=== PATIENT | female | born 1950 | race African-American/Black ===

== ENCOUNTER 2021-07-19 11:02 | Emergency (ER) | payer OTHER ==
[2021-07-19 11:31] VITALS: BP 128/70; PULSE 86; TEMP 98; BMI 37.5
[2021-07-19 13:44] LABS: BASO % 1.1 % (0-2.0); EOS % 3.4 % (0-4.5); HEMATOCRIT 42.1 % (32.4-45.2); HEMOGLOBIN 14.4 GM/dL (10.7-15.3); LYMPH % 28.3 % (8-40); MCHC 34.1 g/dl (32.0-36.0); MEAN CELL VOLUME 93.7 fl (80-96); MEAN PLT VOLUME 9.5 fl (7.5-11.1); MONO % 8.7 % (3.8-10.2); NEUT % 58.5 % (42.8-82.8); PLATELET COUNT 225 10^3/uL (134-434); RBC 4.49 M/mm3 (3.60-5.2); RDW 13.8 % (11.6-15.6); WHITE BLOOD COUNT 3.1 K/mm3 (4.0-10.0)
[2021-07-19 14:07] LABS: CHLORIDE 108 mmol/L (98-107); SODIUM 143 mmol/L (136-145)
[2021-07-19 14:10] LABS: CALCIUM 9.3 mg/dL (8.5-10.1)
[2021-07-19 14:11] LABS: ANION GAP 9 MMOL/L (8-16); BLOOD UREA NITROGEN 14.3 mg/dL (7-18); CO2 26 mmol/L (21-32); GLUCOSE,RANDOM 83 mg/dL (74-106); MAGNESIUM 2.3 mg/dL (1.8-2.4)
[2021-07-19 14:14] LABS: CREATININE 0.8 mg/dL (0.55-1.3); SGPT/ALT 23 U/L (13-61)
[2021-07-19 14:15] LABS: TOT PROT 7.5 g/dl (6.4-8.2)
[2021-07-19 14:16] LABS: ALK PHOS 88 U/L (45-117); BILIRUBIN,TOTAL 0.5 mg/dL (0.2-1)
[2021-07-19 14:19] LABS: SGOT/AST 19 U/L (15-37)
== END 2021-07-19 19:30 | disposition home or self-care (01) ==
LOC: JER 11:02
DX: R00.2 Palpitations (principal); R91.8 Other nonspecific abnormal finding of lung field
CPT/HCPCS: 36415; 71046-TC-FY; 71275-TC; 80053; 82550; 83735; 84443; 84484; 85025; 93005; 93010; 99285-25; Q9967

== ENCOUNTER 2022-06-21 04:01 | Inpatient (IN) | payer OTHER ==
[2022-06-21] MEDS ORDERED: DEXAMETHASONE SOD PHOSPHATE 4 MG/1 ML VIAL ONE (06:53)
[2022-06-21] MEDS ORDERED: ONDANSETRON 4 MG/2 ML VIAL ONE ×2 (06:53→09:57)
[2022-06-21] MEDS ORDERED: LIDOCAINE HCL/PF 2% SDV 5ML VIAL ONE (06:53)
[2022-06-21] MEDS ORDERED: ACETAMINOPHEN INJECTION 100 ML IVPB ONE (06:53)
[2022-06-21] MEDS ORDERED: PROPOFOL 40 ML ONE (06:54)
[2022-06-21] MEDS ORDERED: ROCURONIUM BROMIDE 50 MG/5 ML SYRINGE ONE ×3 (06:54→09:24)
[2022-06-21] MEDS ORDERED: FENTANYL CITRATE/PF 50 MCG/ML VIAL ONE ×2 (06:54→12:18)
[2022-06-21] MEDS ORDERED: MIDAZOLAM HCL 2 MG/2 ML SINGLE DOSE VIAL ONE (06:55)
[2022-06-21] MEDS ORDERED: SUCCINYLCHOLINE CHLORIDE 200 MG/10 ML SYRINGE ONE (06:55)
[2022-06-21] MEDS ORDERED: ceFAZolin SODIUM 1 GM VIAL ONE ×2 (06:57→12:15)
[2022-06-21] MEDS ORDERED: SODIUM CHLORIDE 0.9% P/F 10 ML VIAL IJ ONE ×2 (06:57→12:15)
[2022-06-21] MEDS ORDERED: PHENYLEPHRINE HCL 10 MG/1 ML SINGLE DOSE VIAL ONE (07:12)
[2022-06-21] MEDS ORDERED: SEVOFLURANE 250 ML BTL ONE (07:15)
[2022-06-21] MEDS ORDERED: SCOPOLAMINE HYDROBROMIDE 1 PATCH PATCH.TD72 ONE (07:26)
[2022-06-21] MEDS ORDERED: ceFAZolin SODIUM 1 GM VIAL IVPB ONE (08:15)
[2022-06-21] MEDS ORDERED: BUPIVACAINE HCL/PF 0.25% (2.5MG/ML) 10 ML VIAL ONE (08:47)
[2022-06-21] MEDS ORDERED: HYDROmorphone HCl 2 MG/ML VIAL ONE (08:47)
[2022-06-21] MEDS ORDERED: BUPIVACAINE HCL/PF 0.25% (2.5MG/ML) 10 ML VIAL IJ ONE (09:01)
[2022-06-21] MEDS ORDERED: KETOROLAC TROMETHAMINE 30 MG/1 ML VIAL ONE (09:57)
[2022-06-21] MEDS ORDERED: SUGAMMADEX SODIUM 200 MG/2 ML VIAL ONE (09:57)
[2022-06-21] MEDS ORDERED: INDOCYANINE GREEN 25 MG/10 ML VIAL IVPUSH ONE (11:17)
[2022-06-21] MEDS ORDERED: PROMETHAZINE HCL 25 MG/1 ML VIAL IVPUSH PRN (14:04)
[2022-06-21] MEDS ORDERED: ONDANSETRON 4 MG/2 ML VIAL IVPUSH PRN (14:04)
[2022-06-21] MEDS ORDERED: LACTATED RINGERS SOLUTION 1,000 ML IV SCH (14:15)
[2022-06-21] MEDS ORDERED: HYDROmorphone *PCA* 10MG/50ML DISP.SYRIN PCA SCH (14:15)
[2022-06-21] MEDS: LACTATED RINGERS SOLUTION 1,000 ML IV SCH ×2 (15:45→17:29)
[2022-06-21 16:21] LABS: HEMATOCRIT 39.7 % (32.4-45.2); HEMOGLOBIN 13.2 GM/dL (10.7-15.3); MCH 31.3 pg (25.7-33.7); MCHC 33.3 g/dl (32.0-36.0); MEAN PLT VOLUME 9.4 fl (7.5-11.1); PLATELET COUNT 207 10^3/uL (134-434); RBC 4.23 M/mm3 (3.60-5.2); RDW 13.9 % (11.6-15.6); WHITE BLOOD COUNT 11.4 K/mm3 (4.0-10.0)
[2022-06-21 16:50] LABS: CALCIUM 8.9 mg/dL (8.5-10.1)
[2022-06-21 16:51] LABS: BLOOD UREA NITROGEN 14.4 mg/dL (7-18)
[2022-06-21] MEDS: KETOROLAC TROMETHAMINE 15 MG/ML VIAL IVPUSH SCH ×2 (17:44→23:38)
[2022-06-21] MEDS: INSULIN SLIDING SCALE (NOVOLOG) 1 VIAL SQ SCH ×2 (17:50→22:40)
[2022-06-21] MEDS ORDERED: KETOROLAC TROMETHAMINE 15 MG/ML VIAL IM SCH (20:00)
[2022-06-21] MEDS: ALBUTEROL SO4 0.083% IH SOL 2.5 MG/3 ML VIAL.NEB. NEB SCH (20:23)
[2022-06-21] MEDS: ACETAMINOPHEN 1000 MG/100 ML BAG IVPB SCH (21:45)
[2022-06-21] MEDS ORDERED: CHLORHEXIDINE GLUCONATE 4% CLEANSER FOR DECOLONIZATION TP SCH (22:00)
[2022-06-21] MEDS ORDERED: METOPROLOL TARTRATE 25 MG TABLET (FP) PO SCH (22:00)
[2022-06-21] MEDS ORDERED: MUPIROCIN 2% TOPICAL OINTMENT FOR DECOLONIZATION NS SCH (22:00)
[2022-06-21] MEDS ORDERED: amLODIPine BESYLATE 5 MG TABLET (FP) PO SCH (22:00)
[2022-06-21] MEDS: CHLORHEXIDINE GLUCONATE 4% CLEANSER FOR DECOLONIZATION TP SCH (22:40)
[2022-06-21] MEDS: ATORVASTATIN CA 20 MG TABLET (FP) PO SCH (22:40)
[2022-06-21] MEDS: SENNOSIDES 8.6MG TABLET (FP) PO SCH (22:40)
[2022-06-21] MEDS: GABAPENTIN 100 MG CAPSULE PO SCH (22:40)
[2022-06-21] MEDS: MUPIROCIN 2% TOPICAL OINTMENT FOR DECOLONIZATION NS SCH (22:40)
[2022-06-22] MEDS: ACETAMINOPHEN 1000 MG/100 ML BAG IVPB SCH (03:08)
[2022-06-22] MEDS: KETOROLAC TROMETHAMINE 15 MG/ML VIAL IVPUSH SCH (06:06)
[2022-06-22] MEDS: LEVOTHYROXINE NA 25 MCG TABLET (FP) PO SCH (06:07)
[2022-06-22] MEDS: GABAPENTIN 100 MG CAPSULE PO SCH ×3 (06:07→21:05)
[2022-06-22] MEDS ORDERED: KETOROLAC TROMETHAMINE 15 MG/ML VIAL IVPUSH PRN (06:32)
[2022-06-22] MEDS ORDERED: traMADol HCL 50 MG TABLET PO PRN (06:33)
[2022-06-22] MEDS ORDERED: ACETAMINOPHEN 500 MG TABLET (FP) PO PRN (06:34)
[2022-06-22] MEDS: INSULIN SLIDING SCALE (NOVOLOG) 1 VIAL SQ SCH ×3 (07:00→17:06)
[2022-06-22 07:46] LABS: HEMATOCRIT 36.6 % (32.4-45.2); HEMOGLOBIN 12.6 GM/dL (10.7-15.3); MCH 32.6 pg (25.7-33.7); MCHC 34.5 g/dl (32.0-36.0); MEAN CELL VOLUME 94.4 fl (80-96); MEAN PLT VOLUME 9.6 fl (7.5-11.1); PLATELET COUNT 191 10^3/uL (134-434); RBC 3.88 M/mm3 (3.60-5.2); RDW 13.8 % (11.6-15.6); WHITE BLOOD COUNT 15.8 K/mm3 (4.0-10.0)
[2022-06-22] MEDS: ALBUTEROL SO4 0.083% IH SOL 2.5 MG/3 ML VIAL.NEB. NEB SCH ×4 (07:50→20:40)
[2022-06-22 08:09] LABS: CALCIUM 8.8 mg/dL (8.5-10.1)
[2022-06-22 08:10] LABS: ALBUMIN 3.1 g/dl (3.4-5.0)
[2022-06-22 08:13] LABS: CREATININE 0.7 mg/dL (0.55-1.3)
[2022-06-22 08:14] LABS: BILIRUBIN,TOTAL 0.4 mg/dL (0.2-1)
[2022-06-22 08:15] LABS: TOT PROT 6.1 g/dl (6.4-8.2)
[2022-06-22] MEDS: METOPROLOL TARTRATE 25 MG TABLET (FP) PO SCH ×2 (09:34→21:06)
[2022-06-22] MEDS: PANTOPRAZOLE 40 MG TABLET PO SCH (09:34)
[2022-06-22] MEDS: LORATADINE 10 MG TABLET PO SCH (09:35)
[2022-06-22] MEDS ORDERED: PANTOPRAZOLE SODIUM 40 MG VIAL IVPUSH SCH (10:00)
[2022-06-22] MEDS ORDERED: metoPROLOL SUCCINATE 25 MG TAB.SR.24H (FP) PO SCH (10:00)
[2022-06-22] MEDS ORDERED: ENOXAPARIN NA (PORCINE) 30 MG/0.3 ML DISP.SYRIN SQ SCH ×2 (10:00)
[2022-06-22] MEDS ORDERED: LOSARTAN POTASSIUM 50 MG TABLET PO SCH (10:00)
[2022-06-22] MEDS ORDERED: PATIENT'S OWN MEDICATION (NON-FORMULARY) (Telmisartan [Micardis] 80 MG Tablet) PO SCH (10:00)
[2022-06-22] MEDS: ENOXAPARIN NA (PORCINE) 40 MG/0.4 ML DISP.SYRIN SQ SCH (10:42)
[2022-06-22] MEDS: MUPIROCIN 2% TOPICAL OINTMENT FOR DECOLONIZATION NS SCH ×2 (12:14→21:07)
[2022-06-22] MEDS: traMADol HCL 50 MG TABLET PO PRN ×2 (12:16→19:41)
[2022-06-22] MEDS: IBUPROFEN 600 MG TABLET (FP) PO SCH ×2 (14:38→21:06)
[2022-06-22] MEDS: ACETAMINOPHEN 500 MG TABLET (FP) PO SCH ×2 (14:39→22:15)
[2022-06-22] MEDS: ATORVASTATIN CA 20 MG TABLET (FP) PO SCH (21:06)
[2022-06-22] MEDS: SENNOSIDES 8.6MG TABLET (FP) PO SCH (21:06)
[2022-06-22] MEDS: CHLORHEXIDINE GLUCONATE 4% CLEANSER FOR DECOLONIZATION TP SCH (21:07)
[2022-06-23] MEDS: BENZOCAINE/MENTH/CETYLPYRD CL 1 EACH LOZENGE MM PRN (00:15)
[2022-06-23] MEDS: IBUPROFEN 600 MG TABLET (FP) PO SCH (03:15)
[2022-06-23] MEDS: LEVOTHYROXINE NA 25 MCG TABLET (FP) PO SCH (06:06)
[2022-06-23] MEDS: GABAPENTIN 100 MG CAPSULE PO SCH ×3 (06:06→21:49)
[2022-06-23] MEDS: ACETAMINOPHEN 500 MG TABLET (FP) PO SCH ×3 (06:06→21:48)
[2022-06-23] MEDS ORDERED: FUROSEMIDE 40 MG/4 ML INJECTABLE VIAL IVPUSH ONE (06:28)
[2022-06-23 07:22] LABS: HEMATOCRIT 37.2 % (32.4-45.2); HEMOGLOBIN 12.7 GM/dL (10.7-15.3); MCHC 34.1 g/dl (32.0-36.0); MEAN PLT VOLUME 9.8 fl (7.5-11.1); PLATELET COUNT 193 10^3/uL (134-434); RBC 3.95 M/mm3 (3.60-5.2); RDW 13.8 % (11.6-15.6); WHITE BLOOD COUNT 10.5 K/mm3 (4.0-10.0)
[2022-06-23] MEDS: ALBUTEROL SO4 0.083% IH SOL 2.5 MG/3 ML VIAL.NEB. NEB SCH ×4 (07:24→20:30)
[2022-06-23 07:47] LABS: BLOOD UREA NITROGEN 17.2 mg/dL (7-18); CALCIUM 8.7 mg/dL (8.5-10.1)
[2022-06-23 07:50] LABS: CREATININE 0.8 mg/dL (0.55-1.3)
[2022-06-23] MEDS: CELECOXIB 100 MG CAPSULE PO SCH ×2 (10:15→21:49)
[2022-06-23] MEDS: PANTOPRAZOLE 40 MG TABLET PO SCH (10:15)
[2022-06-23] MEDS: ENOXAPARIN NA (PORCINE) 40 MG/0.4 ML DISP.SYRIN SQ SCH (10:15)
[2022-06-23] MEDS: LORATADINE 10 MG TABLET PO SCH (10:16)
[2022-06-23] MEDS: METOPROLOL TARTRATE 25 MG TABLET (FP) PO SCH ×2 (10:16→21:49)
[2022-06-23] MEDS: MUPIROCIN 2% TOPICAL OINTMENT FOR DECOLONIZATION NS SCH ×2 (10:17→21:49)
[2022-06-23 13:12] VITALS: BMI 40.1
[2022-06-23 18:46] LABS: CALCIUM 9.6 mg/dL (8.5-10.1)
[2022-06-23 18:47] LABS: BLOOD UREA NITROGEN 12.7 mg/dL (7-18)
[2022-06-23 18:50] LABS: CREATININE 0.9 mg/dL (0.55-1.3)
[2022-06-23] MEDS: SENNOSIDES 8.6MG TABLET (FP) PO SCH (21:48)
[2022-06-23] MEDS: ATORVASTATIN CA 20 MG TABLET (FP) PO SCH (21:48)
[2022-06-23] MEDS: CHLORHEXIDINE GLUCONATE 4% CLEANSER FOR DECOLONIZATION TP SCH (21:49)
[2022-06-24] MEDS: ACETAMINOPHEN 500 MG TABLET (FP) PO SCH ×4 (06:06→21:46)
[2022-06-24] MEDS: GABAPENTIN 100 MG CAPSULE PO SCH ×3 (06:06→21:12)
[2022-06-24] MEDS: LEVOTHYROXINE NA 25 MCG TABLET (FP) PO SCH (06:06)
[2022-06-24] MEDS ORDERED: FUROSEMIDE 40 MG/4 ML INJECTABLE VIAL IVPUSH ONE (09:28)
[2022-06-24] MEDS: ALBUTEROL SO4 0.083% IH SOL 2.5 MG/3 ML VIAL.NEB. NEB SCH ×4 (09:51→20:40)
[2022-06-24] MEDS: ENOXAPARIN NA (PORCINE) 40 MG/0.4 ML DISP.SYRIN SQ SCH (10:04)
[2022-06-24] MEDS: LORATADINE 10 MG TABLET PO SCH (10:05)
[2022-06-24] MEDS: amLODIPine BESYLATE 5 MG TABLET (FP) PO SCH (10:05)
[2022-06-24] MEDS: PANTOPRAZOLE 40 MG TABLET PO SCH (10:06)
[2022-06-24] MEDS: METOPROLOL TARTRATE 25 MG TABLET (FP) PO SCH ×2 (10:06→21:11)
[2022-06-24] MEDS: MUPIROCIN 2% TOPICAL OINTMENT FOR DECOLONIZATION NS SCH ×2 (10:07→21:09)
[2022-06-24] MEDS: BENZOCAINE/MENTH/CETYLPYRD CL 1 EACH LOZENGE MM PRN (10:09)
[2022-06-24] MEDS: CELECOXIB 100 MG CAPSULE PO SCH ×2 (10:10→21:10)
[2022-06-24] MEDS: ATORVASTATIN CA 20 MG TABLET (FP) PO SCH (21:10)
[2022-06-24] MEDS: CHLORHEXIDINE GLUCONATE 4% CLEANSER FOR DECOLONIZATION TP SCH (21:10)
[2022-06-24] MEDS: SENNOSIDES 8.6MG TABLET (FP) PO SCH (21:12)
[2022-06-25] MEDS: GABAPENTIN 100 MG CAPSULE PO SCH ×2 (05:31→15:00)
[2022-06-25] MEDS: ACETAMINOPHEN 500 MG TABLET (FP) PO SCH ×2 (06:08→15:00)
[2022-06-25] MEDS: LEVOTHYROXINE NA 25 MCG TABLET (FP) PO SCH (06:09)
[2022-06-25 06:29] VITALS: TEMP 98.9
[2022-06-25 07:42] LABS: HEMATOCRIT 38.4 % (32.4-45.2); MCH 31.7 pg (25.7-33.7); MCHC 33.8 g/dl (32.0-36.0); MEAN CELL VOLUME 93.8 fl (80-96); MEAN PLT VOLUME 9.4 fl (7.5-11.1); PLATELET COUNT 215 10^3/uL (134-434); RDW 13.8 % (11.6-15.6); WHITE BLOOD COUNT 6.6 K/mm3 (4.0-10.0)
[2022-06-25] MEDS: ALBUTEROL SO4 0.083% IH SOL 2.5 MG/3 ML VIAL.NEB. NEB SCH ×3 (08:06→15:21)
[2022-06-25 08:08] LABS: CALCIUM 9.1 mg/dL (8.5-10.1)
[2022-06-25 08:09] LABS: BLOOD UREA NITROGEN 11.8 mg/dL (7-18)
[2022-06-25 08:12] LABS: CREATININE 0.7 mg/dL (0.55-1.3)
[2022-06-25] MEDS ORDERED: POLYETHYLENE GLYCOL (HEALTHYLAX) 3350 17 GM PACKET PO SCH (10:00)
[2022-06-25] MEDS: PANTOPRAZOLE 40 MG TABLET PO SCH (10:20)
[2022-06-25] MEDS: METOPROLOL TARTRATE 25 MG TABLET (FP) PO SCH (10:20)
[2022-06-25] MEDS: amLODIPine BESYLATE 5 MG TABLET (FP) PO SCH (10:20)
[2022-06-25] MEDS: ENOXAPARIN NA (PORCINE) 40 MG/0.4 ML DISP.SYRIN SQ SCH (10:21)
[2022-06-25] MEDS: LORATADINE 10 MG TABLET PO SCH (10:21)
[2022-06-25] MEDS: CELECOXIB 100 MG CAPSULE PO SCH (10:22)
[2022-06-25] MEDS: MUPIROCIN 2% TOPICAL OINTMENT FOR DECOLONIZATION NS SCH (10:22)
[2022-06-25 17:12] VITALS: BP 137/74; PULSE 69; RESP 20
== END 2022-06-25 17:13 | disposition home or self-care (01) | DRG 165 ==
LOC: J2C 04:01 → JICU 17:22
PROVIDERS: ADMIT Student in an Organized Health Care Education/Training Program; ATTEND Family Medicine
PROC: 07B74ZZ Excision of Thorax Lymphatic, Percutaneous Endoscopic Approach (ICD-10-PCS; 2022-06-21)
PROC: 0BT Respiratory System, Resection (ICD-10-PCS; 2022-06-21)
PROC: 0BTF4ZZ Resection of Right Lower Lung Lobe, Percutaneous Endoscopic Approach (ICD-10-PCS; 2022-06-21)
PROC: 8E0W4CZ Robotic Assisted Procedure of Trunk Region, Percutaneous Endoscopic Approach (ICD-10-PCS; 2022-06-21)
PROC: 0BBD4ZZ Excision of Right Middle Lung Lobe, Percutaneous Endoscopic Approach (ICD-10-PCS; principal; 2022-06-21 07:30)
DX: C34.31 Malignant neoplasm of lower lobe, right bronchus or lung (principal); I10 Essential (primary) hypertension; E03.9 Hypothyroidism, unspecified; J44.9 Chronic obstructive pulmonary disease, unspecified; E78.5 Hyperlipidemia, unspecified
CPT/HCPCS: 36415; 71045-TC-FY; 80048; 80053; 82962; 85025; 85027; 86850; 86900; 86901; 86922; 88307-TC; 88309-TC; 88331-TC; 88341-TC; 94640; 94760; 97116-GP; 97162-GP